=== PATIENT | female | born 1995 | race Caucasian/White ===

== ENCOUNTER → 2022-01-18 13:48 | Outpatient (BNVA) | payer OTHER, BC, SELFPAY | PROVIDERS: PCP Internal Medicine; Visit Provider Nurse Practitioner Family | DX: G43.009 Migraine without aura, not intractable, without status migrainosus (principal); G47.9 Sleep disorder, unspecified; F07.81 Postconcussional syndrome; R25.1 Tremor, unspecified | CPT/HCPCS: 99212 ==

== ENCOUNTER 2022-03-30 07:18 | Outpatient (REF) | payer OTHER, BC, SELFPAY ==
--- NOTE | ~2022-03-30 | MR_ITS ---
MRI OF THE BRAIN WITHOUT IV CONTRAST INDICATION: Migraine without aura. COMPARISON: None available. TECHNIQUE: Multiplanar multisequence MR imaging of the brain was obtained without IV contrast. FINDINGS: There is no hydrocephalus, extra-axial surface collection, or herniation. Nonspecific T2 signal changes within the supratentorial white matter. The major flow voids at the skull base are preserved. There is no acute infarct on diffusion-weighted imaging. There is no intracranial hemorrhage on the gradient recalled echo acquisition. The midline structures are normal. The cerebellar tonsils are normally positioned. The cerebellum and brainstem are normal. The craniocervical junction is normal. Osseous marrow signal intensity is homogenous. The visualized soft tissues are unremarkable. MR/MR head/brain wo con IMPRESSION: Nonspecific T2 signal changes within the supratentorial white matter. Otherwise unremarkable noncontrast MRI of the brain.
== END 2022-03-30 07:19 | disposition home or self-care (01) ==
LOC: HO.MRI 07:18
PROVIDERS: PCP Internal Medicine; Visit Provider Nurse Practitioner Family
DX: G43.009 Migraine without aura, not intractable, without status migrainosus (principal); F07.81 Postconcussional syndrome; R25.1 Tremor, unspecified; R42 Dizziness and giddiness; Z79.899 Other long term (current) drug therapy
CPT/HCPCS: 70551; 99212

== ENCOUNTER → 2022-08-06 11:11 | Outpatient (BNVA) | payer OTHER, BC, SELFPAY | PROVIDERS: Visit Provider Nurse Practitioner Family | DX: F07.81 Postconcussional syndrome (principal); G43.009 Migraine without aura, not intractable, without status migrainosus; R42 Dizziness and giddiness | CPT/HCPCS: 99212 ==

== ENCOUNTER → 2022-10-08 13:55 | Outpatient (BNVA) | payer OTHER, BC, SELFPAY | PROVIDERS: Visit Provider Nurse Practitioner Family | DX: F07.81 Postconcussional syndrome (principal); G43.009 Migraine without aura, not intractable, without status migrainosus; R42 Dizziness and giddiness; T78.40XD Allergy, unspecified, subsequent encounter | CPT/HCPCS: 99212 ==

== ENCOUNTER → 2022-12-09 09:23 | Outpatient (BNVA) | payer OTHER, BC, SELFPAY | PROVIDERS: Visit Provider Nurse Practitioner Family | DX: F07.81 Postconcussional syndrome (principal); G43.009 Migraine without aura, not intractable, without status migrainosus; R42 Dizziness and giddiness; T78.40XA Allergy, unspecified, initial encounter | CPT/HCPCS: 99212 ==

== ENCOUNTER → 2023-02-11 14:53 | Outpatient (BNVA) | payer OTHER, BC, SELFPAY | PROVIDERS: PCP Internal Medicine; Visit Provider Nurse Practitioner Family | DX: Z13.89 Encounter for screening for other disorder (principal) ==

== ENCOUNTER 2023-06-28 12:56 | Outpatient (AMB) | payer MEDICAID, SELFPAY ==
[2023-06-28 12:59] VITALS: BP 112/72; PULSE 94; O2SAT 99; BMI 34.2
--- NOTE | 2023-06-28 12:59 | A.OFFVIS_ITS ---
Intake Vital Signs 06/28/23 12:59 Height 5 ft 3 in Weight 193 lb 4 oz BMI 34.2 BP 112/72 Blood Pressure Location Rt brachial Position Sitting Pulse 94 Pulse Source Pulse Oximeter Pulse Oximetry (%) 99 Oxygen Delivery Method Room Air Intake Visit Reasons: follow up - Confirmed Intake Note: Patient presents for 6 month follow up. Patient states I want to talk to her about my disability paperwork now that the workers comp is settled. Allergies No Known Allergies Allergy (Verified 06/28/23 13:02) Medication List - Last Reconciled 06/28/23 by EMILIANO Peters cyclobenzaprine 5 - 10 mg (1 - 2 x 5 mg) PO BEDTIME 30 days fremanezumab-vfrm (Ajovy) 225 mg (1.5 mL) subcut ONCE 30 days levonorgestrel-ethinyl estrad 0.15 mg-30 mcg (91) 1 tab PO DAILY meclizine 12.5 mg PO TID PRN 30 days meclizine 25 mg PO DAILY PRN metoclopramide HCl 10 mg PO TID PRN 30 days HPI HPI Comments History of Present Illness Details 28-yr-old female presents for f/u visit. Pt reports she is currently 12 weeks . She stopped the Ajovy (last dose 04/09/23), Ibuprofen, Cyclobenzaprine- per my recommendation on the day she realized she was . Pt reports she has been having nausea and fatigue. She has been having mild headaches, has had a few days where headaches were more severe and she could not function or do her daily activities x's 3-4 days. She is still can be dizzy and off-balance especially with bending over. Using computer screen for more than 3 hrs a day triggers headaches. She is having more difficulty sleeping- increased muscle tightness/stiffness since not taking cyclobenzaprine, so it is difficult to find comfortable position. [facility] Surgical History (Updated 06/28/23 @ 13:03 by JORI Phillips) History of ankle surgery Hx of appendectomy Social History Alcohol intake: current Alcohol intake frequency: holidays/special occasions only Patient Tobacco Use Status: Never used Tobacco Substance Use Type: Marijuana Current occupation: [employer] All systems reviewed & are unremarkable except as noted in HPI and below Physical Exam Vital Signs: Last Vital Signs Pulse 94 06/28/23 12:59 BP 112/72 06/28/23 12:59 Pulse Ox 99 06/28/23 12:59 Oxygen Delivery Method Room Air 06/28/23 12:59 BMI result Body Mass Index 34.2 Const General: cooperative and no acute distress Orientation/consciousness: patient oriented x3 HEENT Head: Yes normocephalic Resp Effort & Inspection: normal respiratory effort and able to speak in complete sentences Neuro General: patient oriented x3, gait normal and CN's II-XI intact bilaterally Cognition (Neuro): normal cognition Motor exam (neuro): 5/5 motor strength present throughout Psych Appearance: grossly normal Mental Status: mental status grossly normal Speech and movement: Normal speech and movement present Affect: normal affect Attitude: cooperative Thought process: Normal thought process present Thought content: Normal thought content present Insight: Good insight present (Psych) Judgement: Good judgement present (Psych) Assessment & Plan Assessment & Plan (1) : Code(s): Z34.90 - Encounter for supervision of normal , unspecified, unspecified trimester (2) Postconcussional syndrome: Comment: Migraine headaches, vertigo, sleep/mood difficulties s/p head injury at work on 05/07/20 Code(s): F07.81 - Postconcussional syndrome (3) Vertigo: Code(s): R42 - Dizziness and giddiness (4) Migraine without aura: Code(s): G43.009 - Migraine without aura, not intractable, without status migrainosus (5) Tremor: Code(s): R25.1 - Tremor, unspecified (6) Sleep difficulties: Code(s): G47.9 - Sleep disorder, unspecified Plan For post concussion syndrome w/ migraine and vertigo exacerbation: May use Tylenol prn. May use Metoclopramide or Meclizine sparingly prn. 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 Hold Hold Cyclobenzaprin 5-10mg qhs prn and Ajovy 225mg/ml sc q month- d/t . Previous trials: Trudhessa was effective for migraine attack, however was not tolerated d/t nasal irritation. Nabumetone 500-1000 mg- stopped not significantly effective. Aimovig 140 mg subcu q.month d/t injection site bruising and cramping. Pt advised to abstain from work through f/u here in 12 weeks as prolonged exertion continues to exacerbate postconcussive headache/migraine and vestibular s/s. Pt advsied to reach out to office to inquire about applying for disability. For tremor: Did not tolerate propranolol. Monitor tremor clinically. f/u in 3 months or sooner prn. Coding Level of Care Code Est Pt Level 4 (35130) Diagnoses Z34.90 Postconcussional syndrome F07.81 Vertigo R42 Migraine without aura G43.009 Tremor R25.1 Sleep difficulties G47.9
== END 2023-06-28 13:42 | disposition home or self-care (01) ==
PROVIDERS: Visit Provider Nurse Practitioner Family
DX: G43.009 Migraine without aura, not intractable, without status migrainosus (principal); F07.81 Postconcussional syndrome; R42 Dizziness and giddiness; Z33.1 Pregnant state, incidental; R25.1 Tremor, unspecified; G47.9 Sleep disorder, unspecified
CPT/HCPCS: 99214

== ENCOUNTER → 2023-06-28 12:56 | Outpatient (BNVA) | payer OTHER, BC, SELFPAY | PROVIDERS: Visit Provider Nurse Practitioner Family | DX: O26.891 Other specified pregnancy related conditions, first trimester (principal); R11.0 Nausea; R51.9 Headache, unspecified; Z3A.12 12 weeks gestation of pregnancy; F07.81 Postconcussional syndrome; R42 Dizziness and giddiness; R25.1 Tremor, unspecified; G47.9 Sleep disorder, unspecified | CPT/HCPCS: 99212 ==

== ENCOUNTER 2023-10-07 09:47 | Outpatient (AMB) | payer MEDICAID, SELFPAY ==
--- NOTE | 2023-10-07 09:53 | MHC.OFFVIS ---
Intake Vital Signs 10/07/23 09:54 Height 5 ft 3 in Weight 205 lb BMI 36.3 BP 104/78 Blood Pressure Location Rt brachial Position Sitting Pulse 88 Pulse Source Pulse Oximeter Pulse Oximetry (%) 98 Oxygen Delivery Method Room Air Intake Visit Reasons: follow up-Confirmed Intake Note: Patient presents for follow up. I haven't been sleeping much still having the headaches. Allergies No Known Allergies Allergy (Verified 10/07/23 09:57) Medication List - Last Reconciled 10/07/23 by EMILIANO Peters cyclobenzaprine 5 - 10 mg (1 - 2 x 5 mg) PO BEDTIME 30 days fremanezumab-vfrm (Ajovy) 225 mg (1.5 mL) subcut ONCE 30 days levonorgestrel-ethinyl estrad 0.15 mg-30 mcg (91) 1 tab PO DAILY meclizine 12.5 mg PO TID PRN 30 days meclizine 25 mg PO DAILY PRN metoclopramide HCl 10 mg PO TID PRN 30 days HPI HPI Comments History of Present Illness Details 28-yr-old female presents for f/u visit. Pt denies any significant interval medical changes. She is now 26 weeks and 6 days . Her recent glucose tests- were slightly elevated, so will have a 3 hr glucose challenge test. She states her headaches did decrease during the 2nd trimester but has had an increase in the last few days. Using Tylenol prn. Triptans in the past caused nausea. Still photophobic. Not sleeping as well d/t the - OB has said she can take Benadryl or Unisom. The dizziness is better- tries to avoid bending over, moving too quickly. She is still prone to motion sickness if she is a passenger in a car- which can last 1-2 days. If she drives more than 1 hr, this will also cause motion sickness. Neck is stiff- doing her PT exercises. Not using the cyclobenzaprine d/t the . She is actively trying to avoid her triggers. 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 [employer] All systems reviewed & are unremarkable except as noted in HPI and below Physical Exam Vital Signs: Last Vital Signs Pulse 88 10/07/23 09:54 BP 104/78 10/07/23 09:54 Pulse Ox 98 10/07/23 09:54 Oxygen Delivery Method Room Air 10/07/23 09:54 BMI result Body Mass Index 36.3 Const General: cooperative and no acute distress Orientation/consciousness: patient oriented x3 HEENT Head: Yes normocephalic Resp Effort & Inspection: normal respiratory effort and able to speak in complete sentences Neuro Other: Photophobic General: patient oriented x3, gait normal and CN's II-XI intact bilaterally Cognition (Neuro): normal cognition Motor exam (neuro): 5/5 motor strength present throughout Psych Appearance: grossly normal Mental Status: mental status grossly normal Speech and movement: Normal speech and movement present Affect: normal affect Attitude: cooperative Thought process: Normal thought process present Thought content: Normal thought content present Insight: Good insight present (Psych) Judgement: Good judgement present (Psych) Assessment & Plan Assessment & Plan (1) Postconcussional syndrome: Comment: Migraine headaches, vertigo, sleep/mood difficulties s/p head injury at work on 05/07/20 Code(s): F07.81 - Postconcussional syndrome (2) Migraine without aura: Code(s): G43.009 - Migraine without aura, not intractable, without status migrainosus (3) Sleep difficulties: Code(s): G47.9 - Sleep disorder, unspecified (4) : Code(s): Z34.90 - Encounter for supervision of normal , unspecified, unspecified trimester Plan For post concussion syndrome w/ migraine and vertigo exacerbation: May use Tylenol prn. May use Metoclopramide or Meclizine sparingly prn. 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 Benadryl for sleep and migraine. Hold Hold Cyclobenzaprin 5-10mg qhs prn and Ajovy 225mg/ml sc q month- d/t . Previous trials: Trudhessa was effective for migraine attack, however was not tolerated d/t nasal irritation. Nabumetone 500-1000 mg- stopped not significantly effective. Aimovig 140 mg subcu q.month d/t injection site bruising and cramping. ? Pt advised to abstain from work as prolonged exertion continues to exacerbate postconcussive headache/migraine and vestibular s/s. ? For tremor: Did not tolerate propranolol. Monitor tremor clinically. ? f/u in 6 months or sooner prn. Coding Level of Care Code Est Pt Level 4 (74140) Diagnoses Postconcussional syndrome F07.81 Migraine without aura G43.009 Sleep difficulties G47.9 Z34.90
[2023-10-07 09:54] VITALS: BP 104/78; PULSE 88; O2SAT 98; BMI 36.3
== END 2023-10-07 10:51 | disposition home or self-care (01) ==
PROVIDERS: PCP Internal Medicine; Visit Provider Nurse Practitioner Family
DX: G47.9 Sleep disorder, unspecified (principal); F07.81 Postconcussional syndrome; G44.309 Post-traumatic headache, unspecified, not intractable; Z33.1 Pregnant state, incidental
CPT/HCPCS: 99214

== ENCOUNTER → 2023-10-07 09:47 | Outpatient (BNVA) | payer MEDICAID, SELFPAY | PROVIDERS: PCP Internal Medicine; Visit Provider Nurse Practitioner Family | DX: O99.352 Diseases of the nervous system complicating pregnancy, second trimester (principal); G43.009 Migraine without aura, not intractable, without status migrainosus; G47.9 Sleep disorder, unspecified; O99.342 Other mental disorders complicating pregnancy, second trimester; F07.81 Postconcussional syndrome; Z3A.26 26 weeks gestation of pregnancy | CPT/HCPCS: 99212 ==

== ENCOUNTER 2024-04-06 07:48 | Outpatient (AMB) | payer OTHER, MEDICAID, SELFPAY ==
--- NOTE | 2024-04-06 07:53 | A.OFFVIS_ITS ---
Vital Signs 04/06/24 07:54 Height 5 ft 3 in Weight 218 lb BMI 38.6 BP 110/70 Blood Pressure Location Rt brachial Position Sitting Pulse 71 Pulse Source Pulse Oximeter Pulse Oximetry (%) 98 Oxygen Delivery Method Room Air Intake Visit Reasons: WC - 6 mnts f/u appt-CONF Intake Note: Patient presents for 6 month follow up. Patient symptoms coming back headaches,dizziness and vertigo. Allergies No Known Allergies Allergy (Verified 04/06/24 08:01) Medication List - Last Reconciled 04/06/24 by EMILIANO Peters cyclobenzaprine 5 - 10 mg (1 - 2 x 5 mg) PO BEDTIME 30 days fremanezumab-vfrm (Ajovy) 225 mg (1.5 mL) subcut ONCE 30 days levonorgestrel-ethinyl estrad 0.15 mg-30 mcg (91) 1 tab PO DAILY meclizine 12.5 mg PO TID PRN 30 days meclizine 25 mg PO DAILY PRN metoclopramide HCl 10 mg PO TID PRN 30 days HPI Comments Details: 28-yr-old female presents for f/u visit. Pt is 13 weeks - prolonged labor w/ emergency . Baby weighed 7.9 oz- healthy. She is breast feeding. She is not taking anything other than Tylenol or Ibuprofen. She is trying to avoid lights, uses sunglasses outside, and is doing her dizziness/headache PT exercises. She has just had her 1st . She did notice an slight increase in headaches and dizziness w/ her 1st menstrual cycle- she has not had menstrual related headache before. She does have a constant low grade headache. She is generally photophobic. Her memory is still poor. Can feel spacey. 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 General: patient oriented x3 Cranial nerves: Yes CN's II-XII intact bilaterally Cognition (Neuro): normal cognition Psych Appearance: grossly normal Mental Status: mental status grossly normal Speech and movement: Normal speech and movement present Affect: normal affect Attitude: cooperative Assessment & Plan Assessment & Plan (1) Postconcussional syndrome: Comment: Migraine headaches, vertigo, sleep/mood difficulties s/p head injury at work on 05/07/20 Code(s): F07.81 - Postconcussional syndrome Category: Medical (2) Migraine without aura: Code(s): G43.009 - Migraine without aura, not intractable, without status migrainosus Category: Medical (3) Vertigo: Code(s): R42 - Dizziness and giddiness Category: Medical (4) Tremor: Code(s): R25.1 - Tremor, unspecified Category: Medical (5) Dizziness: Code(s): R42 - Dizziness and giddiness Category: Medical Plan For post concussion syndrome w/ migraine and vertigo exacerbation: May use Tylenol or Ibuprofen prn. May retrial triptans when - low dose as triptans previously caused nausea. May use Metoclopramide or Meclizine sparingly prn. Magnesium up to 400-500mg qhs.. Benadryl for sleep and migraine. Once she has stopped breast feeding, consider resuming Cyclobenzaprin 5-10mg qhs prn and Ajovy 225mg/ml sc q month. Previous trials: Trudhessa was effective for migraine attack, however was not tolerated d/t nasal irritation. Nabumetone 500-1000 mg- stopped not significantly effective. Aimovig 140 mg subcu q.month d/t injection site bruising and cramping. ? Pt advised to abstain from work as prolonged exertion continues to exacerbate postconcussive headache/migraine and vestibular s/s. ? For tremor: Did not tolerate propranolol. Monitor tremor clinically. ? f/u in 6 months or sooner prn. Coding Level of Care Code Est Pt Level 4 (72838) Diagnoses Postconcussional syndrome F07.81 Migraine without aura G43.009 Vertigo R42 Tremor R25.1 Dizziness R42
[2024-04-06 07:54] VITALS: BP 110/70; PULSE 71; O2SAT 98; BMI 38.6
== END 2024-04-06 08:56 | disposition home or self-care (01) ==
PROVIDERS: PCP Internal Medicine; Visit Provider Nurse Practitioner Family
DX: F07.81 Postconcussional syndrome (principal); G44.309 Post-traumatic headache, unspecified, not intractable; R42 Dizziness and giddiness; R25.1 Tremor, unspecified
CPT/HCPCS: 99214

== ENCOUNTER → 2024-04-06 07:48 | Outpatient (BNVA) | payer MEDICAID, SELFPAY | PROVIDERS: PCP Internal Medicine; Visit Provider Nurse Practitioner Family | DX: F07.81 Postconcussional syndrome (principal); G43.009 Migraine without aura, not intractable, without status migrainosus; R42 Dizziness and giddiness; R25.1 Tremor, unspecified | CPT/HCPCS: 99212 ==

== ENCOUNTER → 2024-10-29 09:30 | Outpatient (BNVA) | payer OTHER, MEDICAID, SELFPAY | PROVIDERS: PCP Internal Medicine; Visit Provider Nurse Practitioner Family ==

== ENCOUNTER → 2024-10-29 09:30 | Outpatient (AMB) | payer OTHER, MEDICAID, SELFPAY ==
--- NOTE | 2024-10-29 09:30 | MHC.OFFVIS ---
Vital Signs 10/29/24 09:35 Height 5 ft 3 in Weight 210 lb BMI 37.2 Intake Visit Reasons: 6 mo f/u Bicycle Racer Required: No Accompanied by: Self / Same As Patient Allergies No Known Allergies Allergy (Verified 10/29/24 09:31) Medication List - Last Reconciled 10/29/24 by EMILIANO Peters magnesium oxide 400 mg PO BEDTIME 30 days meclizine 12.5 mg PO TID PRN 30 days metoclopramide HCl 10 mg PO TID PRN 30 days riboflavin (vitamin B2) 400 mg PO DAILY 30 days Do you need a note to return to daycare/school/sports/work: No HPI Comments Details: 29-yr-old female presents for f/u of postconcussive syndrome with migraine and vertigo. Pt reports she is currently 8 weeks . She is 9 months post- from her first child- she is currently nursing. Notes she was dx'd w/ pre-eclampsia on the day she was induced- d/t slowly increasing BP and positive urine protein. Her [employer] MA[employer] has asked her to hold the ondansetron for the 1st trimester, and try Unisom and a Vit B instead. Most days she has level of constant low grade headache. She is generally photophobic. Her memory is still poor. Can feel spacey. Pt did start noticing migraines attacks again about 4-5 months ago, which would make her need to lay down for 1-2 days. Pt reports she has had an increase in the vertigo, photophobia, headaches, right or left ear ringing- since becoming . She notes that she had an uptick in these symptoms during the 1st trimester of her last as well, but subsided during her 2nd/3rd trimesters. 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 General: patient oriented x3 Cognition (Neuro): normal cognition Psych Appearance: grossly normal Mental Status: mental status grossly normal Affect: normal affect Attitude: cooperative Telehealth Telehealth Telehealth [facility] Location of provider rendering services: practice address Location of patient: address on file Patient Identification confirmed using: Name, : Yes Telehealth method: video Patient verbally consented to treatment: Yes Patient verbally consented to billing insurance company: Yes Patient informed of any privacy concerns related to visit: Yes Minutes spent on Phone/Video with Pt.: 17 Assessment & Plan Assessment & Plan (1) Postconcussional syndrome: Comment: Migraine headaches, vertigo, sleep/mood difficulties s/p head injury at work on 05/07/20 Code(s): F07.81 - Postconcussional syndrome Category: Medical (2) Migraine without aura: Code(s): G43.009 - Migraine without aura, not intractable, without status migrainosus Category: Medical (3) Vertigo: Code(s): R42 - Dizziness and giddiness Category: Medical (4) Tremor: Code(s): R25.1 - Tremor, unspecified Category: Medical (5) Dizziness: Code(s): R42 - Dizziness and giddiness Category: Medical (6) : Code(s): Z34.90 - Encounter for supervision of normal , unspecified, unspecified trimester Category: Medical Plan For post concussion syndrome w/ migraine and vertigo: General: Track headaches and vertigo symptoms Continue to pace activities as able Advised to notify us and/or her OB w/ any new/abrupt/severe symptoms, such as distinct changes in headache, vision, blood pressure. Future considerations: Revisiting vestibular PT, trialing a neuromodulation device, such as. Discontinue all NSAIDs, including ibuprofen May use Tylenol 650-1000 mg every 4-6 hours prn. May use Metoclopramide 5-10 mg 3 times a day p.r.n. migraine headache, nausea, vomiting. May use Meclizine 12.5 mg p.o. 3 times a day p.r.n. May trial Unisom per OB's recommendation. While on Unisom, hold previous Benadryl order. Future consideration: Retrialing low-dose sumatriptan- note this previously cause nausea. For preventative treatment: Resume riboflavin 400 mg daily in a.m.- if her OB agrees. Magnesium up to 400-500mg qhs. Previous trials: Trudhessa was effective for migraine attack, however was not tolerated d/t nasal irritation. Nabumetone 500-1000 mg- stopped not significantly effective. Aimovig 140 mg subcu q.month d/t injection site bruising and cramping. ? Pt advised to abstain from work as prolonged exertion continues to exacerbate postconcussive headache/migraine and vestibular s/s. ? For tremor: Monitor tremor clinically. Previous trials: Propranolol not tolerated. ? f/u in 6 months or sooner prn. Medications: New riboflavin (vitamin B2) 400 mg PO DAILY 30 days 30 tabs 6RF magnesium oxide may hold for loose stools 400 mg PO BEDTIME 30 days 30 tabs 6RF Refilled metoclopramide HCl 10 mg PO TID 30 days PRN 30 tabs 3RF vomiting/migraine metoclopramide HCl 10 mg PO TID 30 days PRN 10 tabs 3RF vomiting/migraine Coding Level of Care Code Tele Est Pt Level 4 (18674) Diagnoses Postconcussional syndrome F07.81 Migraine without aura G43.009 Vertigo R42 Tremor R25.1 Dizziness R42 Z34.90
[2024-10-29 09:35] VITALS: BMI 37.2
== END ==
PROVIDERS: PCP Internal Medicine; Visit Provider Nurse Practitioner Family
DX: F07.81 Postconcussional syndrome (principal); G44.309 Post-traumatic headache, unspecified, not intractable; R42 Dizziness and giddiness; R25.1 Tremor, unspecified; Z33.1 Pregnant state, incidental
CPT/HCPCS: 99214